=== PATIENT | female | born 1945 | race Caucasian/White ===

== ENCOUNTER → 2018-01-03 | Outpatient (CLI) | payer MEDICARE, OTHER ==
[~2018-01-03] MED LIST: ACET-1966 PO; ASPI-1471 PO; ATOR20TA22 PO; CAL25 PO; CALC-864 PO; CITA-145 PO; ESOM40CA42 PO; LEVO125T77 PO; NEBI10TA4 PO; OLM20 PO; PIOG15TA14 PO
== END ==
LOC: LAB 11:24
PROVIDERS: ATTEND Emergency Medicine
DX: R10.13 Epigastric pain (principal)
CPT/HCPCS: 87338

== ENCOUNTER → 2018-01-18 | Outpatient (CLI) | payer MEDICARE, OTHER ==
[~2018-01-18] MED LIST changes: +ATOR-1 PO; +ATOR40TA69 PO; +NEBI20TA4 PO
== END ==
LOC: AUD 15:51
PROVIDERS: ATTEND Emergency Medicine
DX: H90.3 Sensorineural hearing loss, bilateral (principal)
CPT/HCPCS: 92557; 92570

== ENCOUNTER → 2018-03-07 | Outpatient (CLI) | payer MEDICARE, OTHER | LOC: AUD 10:00 | PROVIDERS: ATTEND Emergency Medicine | DX: Z01.10 Encounter for examination of ears and hearing without abnormal findings (principal) | CPT/HCPCS: 92591; V5261 ==

== ENCOUNTER 2018-03-29 14:30 | Outpatient (RCR) | payer MEDICARE, OTHER ==
--- NOTE | 2018-01-03 16:20 | PT INITIAL EVALUATION ---
MEDICAL DIAGNOSIS: back pain TREATMENT DIAGNOSIS: same, cervical, thoracic, lumbar DATE OF ONSET: 01/04/16 SUBJECTIVE: Kiesha Hummel presents to physical therapy with complaints of back pain the started many years ago. She reports that the back pain is getting worse and is radiating up toward her mid back in a line formation. She rates the worse pain to be 10/10. She rates her normal pain to be 5/10. She rates her good days pain to be 0/10. She reports that bending, sitting, and standing are worse. Furthermore, she reports that lying, massage, heating pad, and ice seem to make it feel better. She reports that she would like some instruction on things to do and things to avoid in order to manage this back pain. She report that walking feels better following 15 minutes of doing so. She states that her mother had similar low back pain that resulted in extreme kyphosis and she states that she wants to avoid that situation if possible. She reports that once she passes gas or a bowel movement the pain typically get better. She denies any abnormal gait or bowel. She denies increased pain with coughing , sneezing, or straining. 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 She reports that she fell x 2 times with one being in June 2017 and the other one being in October 2017. She reports that the pain becomes more intense or sharp with improved posture and less intense and more spread out with a slumped posture. Pain location is L side of T8-L2 and described as radiating pain. Pain scale is 5 on a ten point pain scale. Pain is worse with and better with . REHAB PROBLEM LIST: Increased Pain Decreased ROM Decreased Strength Decreased Endurance Decreased Balance Decreased Function Decreased ADL's Decreased Gait PREVIOUS MEDICAL HISTORY: See EMR OCCUPATION: Retired OBJECTIVE: Posture: She demonstrated forward head, B rounded shoulders, increased thoracic kyphosis, and decreased lumbar lordosis. However, she did not demonstrate a lateral shift to either direction. ROM: Trunk AROM: Lumbar: flexion: NIL with pain increasing when she returned from flexion to neutral. extension: major restriction in movement with painful end feel. R/L sidegliding: major restriction in movement with painful end feel. Thoracic AROM: flexion: NIL with painful end feel. extension: major restriction of movement and painful end feel. R/L thoracic rotation: major restriction of movement and painful end feel. Cervical AROM: flexion: NIL with muscular end feel. extension: moderate restriction in movement and painful end feel. R/L rotation/lateral bending: NIL with muscular end feel. protrusion: moderate restriction in movement and painful end feel. retraction: minimal restriction in movement and painful end feel. Palpation: TTP: facet processes of T8-L2 Sensation: L2-S2 intact bilaterally Special Tests: Repeated thoracic flexion: increased pain during the test and periperphalized pain. Repeated thoracic extension: increased pain during the test and seemed to centralized pain even though it increased pain following. Repeated low back extension: increased pain during the test and seemed to centralize her thoracic/low back pain. Mobility: Independent Gait: She demonstrated the following gait mechanics without AD: increased base of support, normal B LE clearance, no LOB, increased trunk flexion and thoracic kyphosis, decreased pelvic rotation, and decreased velocity. Balance: Will test in the future Other Objective Findings: ASSESSMENT: Kiesha will benefit from skilled physical therapy to address the listed impairments to improve function and QOL. Based on her examination, she has a potential for a classification of derangement that has responded positively to extension with centralization of her pain. Furthermore, it appears to be mechanical pain that is treatable and it will be more evident in the next 4-5 sessions. Short Term Goals 2 weeks: Pt will demonstrate directional preference and centralized thoracic/ low back pain and increased trunk AROM in all directions to improve function and QOL. 6 weeks: Pt will demonstrate abolished thoracic/low back pain along with abolished spasms to improve function and QOL. 8 weeks: Pt will demonstrate return to prior level of function with the ability to walk 1+ mile without any thoracic/low back pain to improve function and QOL. Patient's Goals find stretches or exercises to manage her back pain or find something to get rid of this back pain PLAN: Patient to be seen for Manual Therapy/STM/MET Strengthening/condition Ice/Heat Range of Motion Spinal Stabilization Work Hardening/Cond Stretching Neuromuscular Re-ed Closed Chain Program Posture/Body mechanics Gait Trg/Balance Trg Home Exercise Program Therapeutic Activities 2x/Week for 2 Months If you have any questions, comments, or concerns about this report or plan, please contact me at . Thank you, Miguel Rebollar, PT, DPT MTDD
--- NOTE | 2018-03-16 11:11 | PT PLAN OF CARE ---
Physician: Darcy Mccray MD Patient is being seen: 2x/week Therapist: Miguel Rebollar, PT, DPT Medical Diagnosis: back pain Treatment Diagnosis: same, cervical, thoracic, lumbar Date of Onset: 01/04/16 Date of Initial Evaluation: 01/03/18 Date patient was last seen: 03/15/18 Number of treatments: 10 Number of cancellations/No shows: 0 INTERVENTIONS: Manual Therapy/STM/MET Strengthening/condition Ice/Heat Range of Motion Spinal Stabilization Work Hardening/Cond Stretching Neuromuscular Re-ed Closed Chain Program Posture/Body mechanics Gait Trg/Balance Trg Home Exercise Program Therapeutic Activities GOALS: 2 weeks: Pt will demonstrate directional preference and centralized thoracic/ low back pain and increased trunk AROM in all directions to improve function and QOL. MET 6 weeks: Pt will demonstrate abolished thoracic/low back pain along with abolished spasms to improve function and QOL. MET 8 weeks: Pt will demonstrate return to prior level of function with the ability to walk 1+ mile without any thoracic/low back pain to improve function and QOL. Not MET PATIENT'S GOAL: find stretches or exercises to manage her back pain or find something to get rid of this back pain Status of Patient's Goals: Progressing well Patient Compliance: Good Prognosis: Good Reasons for continuing therapy: This is a progress note for Kiesha Hummel. She reports that she has not had her back spasms in 1.5 weeks, which she reports is a significant improvement. She reports that she continues to perform her specific exercise in sitting and in supine with positive results. She reports that she has returned to cleaning and dusting without any return of spasms. She continues to demonstrated centralized and abolished thoracic and low back pain along with abolished spasms. She continues to demonstrate improvements with trunk AROM in all directions. We would like to see her spasms be abolished for two weeks and then we will improve core strength, posture, and return her to prior level of function and then discharge in the next 10 visits if she continues with her current trend of no spasms or back pain. Posture: She demonstrated forward head, B rounded shoulders, increased thoracic kyphosis, and decreased lumbar lordosis. However, she did not demonstrate a lateral shift to either direction. ROM: Trunk AROM: Lumbar: flexion: NIL with normal end feels. extension: moderate restriction in movement with empty end feel. R/L sidegliding: NIL with normal end feel. Thoracic AROM: flexion: NIL with normal end feel. extension: moderate restriction of movement and empty end feel. R/L thoracic rotation: NIL with normal end feel. Cervical AROM: flexion: NIL with muscular end feel. extension: moderate restriction in movement and painful end feel. R/L rotation/ lateral bending: NIL with muscular end feel. protrusion: moderate restriction in movement and painful end feel. retraction: minimal restriction in movement and painful end feel. Mobility: Independent If you have any questions, please contact me at [phone]. Thank you, Miguel Rebollar, PT, DPT MTDD
== END 2018-04-03 ==
LOC: PT 14:30
PROVIDERS: ATTEND Emergency Medicine
DX: M54.5 Low back pain (principal); M54.2 Cervicalgia; M54.6 Pain in thoracic spine; E11.9 Type 2 diabetes mellitus without complications; M06.9 Rheumatoid arthritis, unspecified; Z95.0 Presence of cardiac pacemaker
CPT/HCPCS: 97163

== ENCOUNTER 2018-04-27 15:15 | Outpatient (RCR) | payer MEDICARE, OTHER ==
--- NOTE | 2018-04-05 08:55 | PT PLAN OF CARE ---
Physician: Darcy Mccray MD Patient is being seen: 2x/week Therapist: Miguel Rebollar, PT, DPT Medical Diagnosis: back pain Treatment Diagnosis: same, cervical, thoracic, lumbar Date of Onset: 01/04/16 Date of Initial Evaluation: 01/03/18 Date patient was last seen: 04/04/18 Number of treatments: 15 Number of cancellations/No shows: 0 INTERVENTIONS: Manual Therapy/STM/MET Strengthening/condition Ice/Heat Range of Motion Spinal Stabilization Work Hardening/Cond Stretching Neuromuscular Re-ed Closed Chain Program Posture/Body mechanics Gait Trg/Balance Trg Home Exercise Program Therapeutic Activities GOALS: 2 weeks: Pt will demonstrate directional preference and centralized thoracic/low back pain and increased trunk AROM in all directions to improve function and QOL. MET 6 weeks: Pt will demonstrate abolished thoracic/low back pain along with abolished spasms to improve function and QOL. Progressing 8 weeks: Pt will demonstrate return to prior level of function with the ability to walk 1+ mile without any thoracic/low back pain to improve function and QOL. Progressing PATIENT'S GOAL: find stretches or exercises to manage her back pain or find something to get rid of this back pain Status of Patient's Goals: progressing Patient Compliance: Good Prognosis: Good Reasons for continuing therapy: This is progress note Kiesha Hummel. She reports that she continues to have the spasms with prolonged sitting inside the car. She states that they are less severe than they used to be, however, she reports that as long as she is not sitting for long times in the car, her spasms continue to stay away. She reports that she continues to do her specific exercise with good results. She continues to demonstrate directional preference with flexion based exercise principles, however, she continues to perform aggravating factors that cause the spasms to return, i.e., prolonged sitting in a car, however, she has gone 3-4 days without spasm, which is a positive sign, however, if the pain stays away for a minimum of one week we can start to work on her posture and other aspects, otherwise, we will continue to reduce the injury until it is fully stable and then assist her to return to prior level of function. Posture: She demonstrated forward head, B rounded shoulders, increased thoracic kyphosis, and decreased lumbar lordosis. However, she did not demonstrate a lateral shift to either direction. ROM: Trunk AROM: Lumbar: flexion: NIL with normal end feels. extension: moderate restriction in movement with painful end feel. R/L sidegliding: moderate restriction in movement with painful end feel. Thoracic AROM: flexion: NIL with painful end feel. extension: moderate restriction of movement and painful end feel. R/L thoracic rotation: moderate restriction of movement and painful end feel. Cervical AROM: flexion: NIL with muscular end feel. extension: minimal restriction in movement and painful end feel. R/L rotation/lateral bending: NIL with muscular end feel. protrusion: minimal restriction in movement and painful end feel. retraction: minimal restriction in movement and painful end feel. Mobility: Independent If you have any questions, please contact me at [phone]. Thank you, Miguel Rebollar, PT, DPT RONALD
== END 2018-04-27 18:00 | disposition home or self-care (01) ==
LOC: PT 15:15
PROVIDERS: ATTEND Emergency Medicine
DX: M54.5 Low back pain (principal); M54.2 Cervicalgia; M54.6 Pain in thoracic spine

== ENCOUNTER → 2018-08-02 | Outpatient (CLI) | payer MEDICARE, OTHER | LOC: AUD 15:11 | PROVIDERS: ATTEND Emergency Medicine | DX: Z46.1 Encounter for fitting and adjustment of hearing aid (principal) | CPT/HCPCS: V5264 ×2 ==

== ENCOUNTER → 2018-12-05 | Outpatient (CLI) | payer MEDICARE, OTHER ==
[~2018-12-05] MED LIST changes: +CITA-137 PO; +OFLO5DRO45 EACH EAR; +PANT40TA65 PO
[2018-12-05 09:36] LABS: PLATELET COUNT, AUTOMATED 208 K/uL (150-450)
== END ==
LOC: LAB 09:12
PROVIDERS: ATTEND Emergency Medicine
DX: I10 Essential (primary) hypertension (principal); E11.9 Type 2 diabetes mellitus without complications; I25.10 Atherosclerotic heart disease of native coronary artery without angina pectoris
CPT/HCPCS: 36415; 82306; 82550; 82607; 82652; 85025

== ENCOUNTER → 2019-02-21 | Outpatient (CLI) | payer MEDICARE, OTHER ==
[~2019-02-21] MED LIST changes: +ATOR40TA24 PO; +RANI-318 PO
== END ==
LOC: RAD 01:02
PROVIDERS: ATTEND Internal Medicine Clinical Cardiac Electrophysiology
DX: I51.7 Cardiomegaly (principal); I34.0 Nonrheumatic mitral (valve) insufficiency; I35.1 Nonrheumatic aortic (valve) insufficiency
CPT/HCPCS: 93306